=== PATIENT | female | born 1960 | race Caucasian/White ===

== ENCOUNTER 2016-08-20 08:25 | Emergency (ER) | payer OTHER ==
[2016-08-20 08:42] VITALS: BP 111/57
[2016-08-20] MEDS ORDERED: Naproxen TAB* 250 MG PO ONE (09:31)
--- NOTE | 2016-08-20 10:29 | UC ---
Upper Extremity HPI - HPI Summary HPI Summary: The patient comes in today for: 1. Left arm pain: Onset: 3 hours ago. Palliative/provocative: Movement makes it worse. Quality: Sharp. Region: Upper arm from the shoulder to the elbow. Severity: 6/10 Time: Constant. Associated symptoms: Event: She was pulled by her dog (left arm). She also fell laterally on the arm. She had pain right at that time. She did not treat herself with anything. Previous injury or surgery; None. Numbness/weakness: None. 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 Endocrine History Of: Denies: Diabetes, Thyroid Disease, Hyperthyroidism, Hypothyroidism, Dyslipidemia Cardiovascular History Of: Denies: Cardiac Disorders, Hypertension, Pacemaker/ICD, Myocardial Infarction , Congestive Heart Failure, Atrial Fibrillation, Deep Vein Thrombosis, Bleeding Disorders Respiratory History Of: Reports: Bronchitis Denies: COPD, Asthma GI/ History Of: Denies: Gastroesophageal Reflux, Ulcer, Gastrointestinal Bleed, Gall Bladder Disease, Kidney Stones, Diverticulitis, Renal Disease, Urosepsis Neurological History Of: Denies: TIA, CVA, Dementia, Seizures, Migraine Psychological History Of: Denies: Anxiety, Depression, Bipolar Disorder, Schizophrenia, Post Traumatic Stress Disorder Cancer History Of: Denies: Lung Cancer, Colorectal Cancer, Breast Cancer, Prostate Cancer, Cervical Cancer Other History Of: Negative For: HIV, Hepatitis B, Hepatitis C, Anticoagulant Therapy - Surgical History Surgical History: None - Family History Known Family History: Negative: Cardiac Disease, Hypertension - Social History Occupation: Employed Full-time Alcohol Use: Rare Substance Use Type: None Smoking Status (MU): Former Smoker - Immunization History Most Recent Influenza Vaccination: fall 2015 Review of Systems Constitutional: Negative Skin: Negative Eyes: Negative ENT: Negative Respiratory: Negative Cardiovascular: Negative Gastrointestinal: Negative Genitourinary: Negative Musculoskeletal: Arthralgia, Myalgia All Other Systems Reviewed And Are Negative: Yes Physical Exam Triage Information Reviewed: Yes Appearance: Well-Appearing, No Pain Distress - When at rest., Well-Nourished Vital Signs: Initial Vital Signs Temp 98.4 F 08/20/16 08:36 Pulse 62 08/20/16 08:36 Resp 16 08/20/16 08:36 BP 111/57 08/20/16 08:36 Pulse Ox 99 08/20/16 08:36 Vital Signs Reviewed: Yes Eyes: Positive: Conjunctiva Clear. Negative: Discharge ENT: Positive: Hearing grossly normal. Negative: Pharyngeal erythema, Nasal congestion, Nasal drainage, TM bulging, TM dull, TM red, Tonsillar swelling, Tonsillar exudate Dental: Negative: Gross Decay/Caries @, Dental Fracture @ Neck: Positive: Supple, Nontender, No Lymphadenopathy. Negative: Nuchal Rigidity Respiratory: Positive: Chest non-tender, Lungs clear, No respiratory distress, No accessory muscle use. Negative: Crackles, Wheezing Cardiovascular: Positive: RRR, No Murmur Abdomen Description: Positive: Nontender, No Organomegaly, Soft. Negative: Distended, Guarding, Peritoneal Signs Musculoskeletal: Positive: Other: - Left shoulder: No ecchymosis or erythema or distortion of anatomy. There is global tenderness to the whole shoulder and elbow (coracoid process area, biceps tendon, AC joint, deltoid bursa, lateral and medial epicondyle). She has reduced abduction anteriorly and laterally. Neurological: Positive: Alert, Muscle Tone Normal Psychological: Positive: Age Appropriate Behavior, Consolable Skin: Negative: rashes, breakdown Diagnostics - Radiology No standard instances Xray Interpretation: No Acute Changes Radiology Interpretation Completed By: Radiologist - Left shoulder, humerus, and elbow all negative. Upper Extremity Course/Dx - Differential Dx/Diagnosis Differential Diagnosis/HQI/PQRI: Contusion, Fracture (Closed), Hematoma, Strain , Sprain Provider Diagnoses: left shoulder, humerus, and elbow pain (contusion). Discharge - Discharge Plan Condition: Stable Disposition: HOME Patient Education Materials: Shoulder Sprain (ED), Shoulder Pain (ED) Referrals: Glynn Allan MD [Primary Care Provider] - 1 Week (Please see your primary care provider after several days to see how well you are doing. If you get worse, please go to the ER. If you don't have any improvement, please see the orthopedic surgeon listed. ) Morgan Laytno MD [Medical Doctor] -
--- NOTE | 2016-08-20 10:32 | RAD ---
Indication: Pain post fall. Comparison: Elbow of the same date. Technique: Internal and external rotation AP and scapular Y views LEFT shoulder Report: Normal acromioclavicular and glenohumeral joint alignment. Negative for fracture at the shoulder or humerus with the entire humerus visualized in 2 projections between the shoulder and the elbow exam. No significant arthropathic change at the acromioclavicular or glenohumeral joints. Unremarkable soft tissue contours. Minimal linear atelectasis at the peripheral LEFT mid lung zone. No rib fracture or pneumothorax evident. IMPRESSION: No traumatic injury of the LEFT shoulder or humerus evident.
--- NOTE | 2016-08-20 10:33 | RAD ---
INDICATION: LEFT shoulder through elbow pain post fall. COMPARISON: Shoulder on the same date. TECHNIQUE: AP, lateral, and oblique views LEFT elbow. REPORT AND IMPRESSION: Normal articular alignment. Negative for fat pad displacement to indicate effusion. No cortical disruption or suspicious trabecular irregularity to suggest fracture. Mild dorsal soft tissue swelling.
== END 2016-08-20 10:54 | disposition home or self-care (01) ==
LOC: UCEAST 08:25
DX: S40.012A Contusion of left shoulder, initial encounter (principal); S40.022A Contusion of left upper arm, initial encounter; S50.02XA Contusion of left elbow, initial encounter; W54.8XXA Other contact with dog, initial encounter; Z87.891 Personal history of nicotine dependence
CPT/HCPCS: 99213; A9270-GY; G0463